=== PATIENT | female | born 1985 | race African-American/Black ===

== ENCOUNTER 2018-08-04 08:20 | Emergency (ER) | payer OTHER ==
[2018-08-04] MEDS ORDERED: Metoclopramide HCl 10 MG/2 ML VIAL ONE (09:45)
[2018-08-04] MEDS ORDERED: diphenhydrAMINE 50 MG/ML VIAL ONE (09:52)
--- NOTE | 2018-08-04 13:11 | CT ---
HEAD CT WITHOUT CONTRAST: Date: 08/04/18 HISTORY: Headache x7-8 days. COMPARISON: None. FINDINGS: No parenchymal hemorrhage. No extra-axial hematoma. No midline shift. Basilar cisterns are patent. Br ain volume, age-appropriate. Cortical goodwin-white matter differentiation preserved. No evidence of hydrocephalus. Calvarium is intact. Adequate aeration of the sinuses and mastoid air cells. IMPRESSION: No acute intracranial process. POS: [facility]
[2018-08-04] MEDS ORDERED: Ketorolac Tromethamine 30 MG/ML VIAL ONE (14:07)
== END 2018-08-04 14:31 | disposition home or self-care (01) ==
LOC: ERS 08:20
DX: R51 Headache (principal)
CPT/HCPCS: 70450; 96361; 96374; 96375; J1200; J1885; J2765